=== PATIENT | male | born 1950 | race American Indian/Alaskan Native ===

== ENCOUNTER 2019-06-14 18:37 | Emergency (ER) | payer OTHER ==
[~2019-06-14] VITALS: Ht 177.8 cm; Wt 99.1 kg
[2019-06-14 18:46] VITALS: Ht 177.8 cm; Wt 99.1 kg
[2019-06-14] MEDS ORDERED: SEROQUEL300 MG PO ×2 (18:48→18:49)
[2019-06-14] MEDS ORDERED: SEROQUEL50 MG PO (18:49)
[2019-06-14] MEDS ORDERED: FLOMAX0.4 MG PO (18:50)
[2019-06-14 19:18] LABS: BASOPHILS 0.6 % (0-2); HEMATOCRIT 41.6 % (42.0-54.0); HEMOGLOBIN 14.6 g/dL (13.5-17.5); IMMATURE GRANULOCYTES 0.4 % (0-5); LYMPHOCYTES 25.1 % (15-50); MCH 31.3 pg (26.0-34.0); MCHC 35.1 g/dL (31.0-37.0); MCV 89.3 fL (80.0-100.0); MEAN PLATELET VOLUME 9.1 fL (7.4-10.4); MONOCYTES 7.2 % (2-11); NEUTROPHILS 60.7 % (40-80); PLATELET COUNT 219 10x3/uL (130-400); RBC 4.66 10x6/uL (4.20-6.10); RDW 11.7 % (11.5-14.5); WBC 10.5 10x3/uL (4.8-10.8)
[2019-06-14 19:21] LABS: APPEARANCE CLEAR (CLEAR); BILIRUBIN NEGATIVE (NEGATIVE); COLOR YELLOW (YELLOW); GLUCOSE 500 mg/dL (NEGATIVE); KETONE NEGATIVE (NEGATIVE); NITRITE NEGATIVE (NEGATIVE); PROTEIN NEGATIVE (NEGATIVE); SPECIFIC GRAVITY 1.015 (1.005-1.020); UROBILINOGEN NORMAL (NORMAL)
[2019-06-14 19:25] LABS: CALC OSMOLALITY 286 mosm/kg (275-300); CALCIUM 8.9 mg/dL (8.5-10.1); CARBON DIOXIDE 29.7 mmol/L (21.0-32.0); CHLORIDE - SERUM 96 mmol/L (98-107); CREATININE - SERUM 1.4 mg/dL (0.6-1.3); POTASSIUM - SERUM 4.9 mmol/L (3.5-5.1); SODIUM 133 mmol/L (136-145); UREA NITROGEN 30 mg/dL (7-18); eGFR NON AFRICAN AMERICAN 54 mL/min (90-120)
[2019-06-14 19:26] LABS: GLUCOSE 360 mg/dL (74-106)
[2019-06-14 19:51] LABS: KETONE - SERUM NEGATIVE (NEGATIVE)
[2019-06-14] MEDS ORDERED: GLUCOPHAGE500 MG PO (19:52)
[2019-06-14 19:55] LABS: ALBUMIN 4.1 g/dL (3.4-5.0); ALKALINE PHOSPHATASE 192 U/L (30-120); ALT (SGPT) 28 U/L (10-68); BILIRUBIN - TOTAL 0.49 mg/dL (0.2-1.3); MAGNESIUM - SERUM 2.4 mg/dL (1.8-2.4); PROTEIN - SERUM 7.8 g/dL (6.4-8.2)
[2019-06-14 20:55] VITALS: BP 118/70
== END 2019-06-14 20:55 | disposition home or self-care (01) ==
LOC: D.ER 18:37
PROVIDERS: Family Medicine
DX: E11.9 Type 2 diabetes mellitus without complications (principal); R74.8 Abnormal levels of other serum enzymes; I10 Essential (primary) hypertension; K21.9 Gastro-esophageal reflux disease without esophagitis

== ENCOUNTER 2019-07-28 12:34 | Inpatient (IN) | payer OTHER ==
[~2019-07-28] VITALS: Ht 177.8 cm; Wt 98.2 kg
[~2019-07-28 12:34] MED LIST: FLOMAX0.4 MG PO; GLUCOPHAGE500 MG PO; SEROQUEL300 MG PO; SEROQUEL50 MG PO
[2019-07-28 13:34] LABS: BASOPHILS 0.1 % (0-2); EOSINOPHILS 0 % (0-7); HEMATOCRIT 45.5 % (42.0-54.0); HEMOGLOBIN 15.4 g/dL (13.5-17.5); IMMATURE GRANULOCYTES 0.2 % (0-5); LYMPHOCYTES 9.5 % (15-50); MCH 30.7 pg (26.0-34.0); MCHC 33.8 g/dL (31.0-37.0); MCV 90.8 fL (80.0-100.0); MEAN PLATELET VOLUME 8.9 fL (7.4-10.4); MONOCYTES 11.2 % (2-11); PLATELET COUNT 239 10x3/uL (130-400); RBC 5.01 10x6/uL (4.20-6.10)
[2019-07-28 13:47] LABS: INR 1.1 (0.85-1.17); PROTIME 14.2 SECONDS (11.6-15.0)
[2019-07-28 13:48] LABS: APTT 33.7 SECONDS (22.8-39.4)
--- NOTE | 2019-07-28 14:00 | NUR ---
PT IS POSITIVE FOR FLU A
[2019-07-28 14:23] LABS: CALC OSMOLALITY 273 mosm/kg (275-300); CALCIUM 8.5 mg/dL (8.5-10.1); CARBON DIOXIDE 23.6 mmol/L (21.0-32.0); CHLORIDE - SERUM 99 mmol/L (98-107); CREATININE - SERUM 1.4 mg/dL (0.6-1.3); POTASSIUM - SERUM 4.1 mmol/L (3.5-5.1); SODIUM 133 mmol/L (136-145); UREA NITROGEN 38 mg/dL (7-18); eGFR NON AFRICAN AMERICAN 54 mL/min (90-120)
[2019-07-28 14:25] LABS: GLUCOSE 73 mg/dL (74-106)
[2019-07-28 14:54] VITALS: BP 140/78
[2019-07-28 14:56] LABS: ALBUMIN 3.9 g/dL (3.4-5.0); ALKALINE PHOSPHATASE 102 U/L (30-120); ALT (SGPT) 30 U/L (10-68); BILIRUBIN - TOTAL 0.68 mg/dL (0.2-1.3); CKMB 1.1 U/L (0.0-3.6); CREATINE KINASE 238 UL (21-232); PRO BNP 270 pg/mL (0-125); PROTEIN - SERUM 8.1 g/dL (6.4-8.2)
[2019-07-28 15:11] LABS: TROPONIN-I < 0.017 ng/mL (0.000-0.060)
--- NOTE | 2019-07-28 15:20 | NUR ---
ROCEPHIN INFUSED. PT ELIEL. WELL.
--- NOTE | 2019-07-28 16:26 | NUR ---
PT SWABBED FOR CAMPOS TAKEN TO MED 2 . PT WEARING MASK, CLOTHES BAGGED AND UNDER COVER. TAKEN TO ISOLATION ROOM. HOUSE SUPP. AWARE.
[2019-07-28 16:48] VITALS: BP 110/66
[2019-07-28 17:11] VITALS: BP 110/66; BMI 30.9
--- NOTE | 2019-07-28 18:14 | NUR ---
PT ARRIVED TO ROOM VIA STRETCHER. PT IS FLUSHED AND HOT TO THE TOUCH. ALERT AND ORIENTED, VERY HARD OF HEARING. PT WALKS WELL UNASSISTED BUT STATES HE'D PREFER A URINAL AT THIS TIME BECAUSE HE'S PRETTY TIRED. STATES HE FEELS BETTER THAN HE DID WHEN HE FIRST ARRIVED AT THE HOSPITAL. AFEBRIL. NO COMPLAINTS OR CONCERNS, JUST WANTS TO REST AT THIS TIME. CL INR EACH, SRX2.
--- NOTE | 2019-07-28 20:22 | NUR ---
RECEIVED LAYING IN BED WITH EYES CLOSED. AROUSES WITH VERBAL STIMULI. ORIENTED X4. UP AD LIBB TO B/R. IV TO LT FA SL.. O2@ 3 LITERS PER N/C. REMAINS IN ISOLATION R/T FLU TYPE A AMD PRESUMPTIVE CAMPOS VIRUS. HAD A HACKING COUGH. DENIES ANY NEEDS AT THIS TIME.
[2019-07-28 20:38] VITALS: BP 115/48
[2019-07-28 21:08] LABS: BILIRUBIN NEGATIVE (NEGATIVE); GLUCOSE NEGATIVE (NEGATIVE); KETONE NEGATIVE (NEGATIVE); NITRITE NEGATIVE (NEGATIVE); RED CELLS - URINE 0-5 /hpf (0-5); SPECIFIC GRAVITY 1.025 (1.005-1.020); UROBILINOGEN NORMAL (NORMAL); WHITE CELLS - URINE OCC /hpf (NEGATIVE)
[2019-07-28 21:09] LABS: BACTERIA MODERATE /hpf (NEGATIVE); EPITHELIAL CELLS 0-5 /hpf (0-5)
[2019-07-29 02:39] VITALS: BP 119/66
[2019-07-29 05:54] VITALS: BP 123/66
[2019-07-29 06:38] LABS: BASOPHILS 0 % (0-2); EOSINOPHILS 0 % (0-7); HEMATOCRIT 41.8 % (42.0-54.0); IMMATURE GRANULOCYTES 0.1 % (0-5); LYMPHOCYTES 16.7 % (15-50); MCH 30.6 pg (26.0-34.0); MCHC 33.5 g/dL (31.0-37.0); MCV 91.3 fL (80.0-100.0); MEAN PLATELET VOLUME 8.5 fL (7.4-10.4); MONOCYTES 7.3 % (2-11); NEUTROPHILS 75.9 % (40-80); PLATELET COUNT 199 10x3/uL (130-400); RBC 4.58 10x6/uL (4.20-6.10); RDW 12.9 % (11.5-14.5)
[2019-07-29 07:27] LABS: ALBUMIN 3.3 g/dL (3.4-5.0); ALKALINE PHOSPHATASE 94 U/L (30-120); ALT (SGPT) 29 U/L (10-68); BILIRUBIN - TOTAL 0.78 mg/dL (0.2-1.3); CALCIUM 8.4 mg/dL (8.5-10.1); CARBON DIOXIDE 22.1 mmol/L (21.0-32.0); CHLORIDE - SERUM 101 mmol/L (98-107); GLUCOSE 100 mg/dL (74-106); MAGNESIUM - SERUM 1.9 mg/dL (1.8-2.4); POTASSIUM - SERUM 4.1 mmol/L (3.5-5.1); PROTEIN - SERUM 7.4 g/dL (6.4-8.2); SODIUM 135 mmol/L (136-145); eGFR NON AFRICAN AMERICAN 79 mL/min (90-120)
[2019-07-29 07:28] LABS: CALC OSMOLALITY 273 mosm/kg (275-300); UREA NITROGEN 25 mg/dL (7-18)
[2019-07-29 09:19] VITALS: BP 140/82
--- NOTE | 2019-07-29 09:36 | NUR ---
PT AWAKE AND ORIENTED, LYING IN BED RESTING. WOKE EASILY I ENTERED ROOM. PT SEEMS MUCH BETTER THAN YESTERDAY THOUGH LUNGS SOUND WORSE. PT TOOK MEDICATIONS WITHOUT COMPLICATIONS AND DENIES NEED FOR OTHER ITEMS AT [facility]IST [place]. TEMPERATRUE WNL. NO COMPLAINTS OR CONCERNS AT THIS TIME. CL IN REACH,S RX2,
[2019-07-29 11:04] VITALS: BP 121/57
--- NOTE | 2019-07-29 11:12 | NUR ---
PT ALERT AND ORIENTED, MOANING LOUDLY WHEN HE STARTS TO DRIFT OFF TO SLEEP. PT IS FLUSHED AND DIAPHORETIC, CHECKED TEMPERATURE 101.3, ADMINISTERED TYLENOL. PT STATES HE FEELS BETTER BUT HE LOOKS WORSE. WILL CONT. TO MONITOR. CL IN REACH, SRX2.
--- NOTE | 2019-07-29 11:54 | MORECARE ---
CASE MANAGEMENT DISCHARGE SUMMARY PATIENT: ELIZABETH KINCAID UNIT: [id number] ADM DATE: 07/28/19 AGE: 68 : 52 SEX: M ROOM/BED: D.2140 AUTHOR: RACHELE SORIANO PHYSICIAN: REFERRING PHYSICIAN: MEGHANA HERNANDEZ MD DATE OF SERVICE: 07/29/19 Discharge Plan Patient Name: ELIZABETH KINCAID [facility] [facility] 1950 Planned Disposition: Home Anticipated Discharge Date: 07/29/19 Discharge Date: Expected LOS: 1 Initial Reviewer: [email or web address] Initial Review Date: 07/29/2019 Generated: 07/29/19 12:53 pm DCPIA - Discharge Planning Initial Assessment Updated by [email or web address]: Jeremie Moser on 07/29/19 11:49 am * Is the patient Alert and Oriented? Yes * How many steps to enter\exit or inside your home? NONE * PCP [facility] * Pharmacy [facility] OR [facility] * Preadmission Environment Home Alone * ADLs Independent * Equipment None * Other Equipment [facility] - PREFERRED PROVIDER * List name and contact numbers for known caregivers / representatives who currently or will assist patient after discharge: YOCASTA GALLEGOSR, FRIEND, * Verbal permission to speak to the caregivers and representatives has been obtained from the patient. N/A * Community resources currently utilized None * Please name any agencies selected above. NONE * Additional services required to return to the preadmission environment? No * Can the patient safely return to the preadmission environment? Yes * Has this patient been hospitalized within the prior 30 days at any hospital? No Patient Name: ELIZABETH KINCAID Page [phone] at 1154 All edits/amendments must be made on the electronic document DICTATION DATE: 07/29/19 1153 PANEL MACHINE SETTER: FABIO 07/29/19 1153 RPT#: [id number] DC DATE: STATUS: ADM IN [facility] [address] [place] [address] END OF REPORT
--- NOTE | 2019-07-29 12:00 | MORECARE ---
CASE MANAGEMENT DISCHARGE SUMMARY PATIENT: ELIZABETH KINCAID UNIT: [id number] ADM DATE: 07/28/19 AGE: 68 : 52 SEX: M ROOM/BED: D.2140 AUTHOR: CHRISTIE,DOC PHYSICIAN: REFERRING PHYSICIAN: MEGHANA HERNANDEZ MD DATE OF SERVICE: 07/29/19 Discharge Plan Patient Name: ELIZABETH KINCAID Facility: [facility]:[place] : 1950 Planned Disposition: Home Anticipated Discharge Date: 07/29/19 Discharge Date: Expected LOS: 1 Initial Reviewer: [email or web address] Initial Review Date: 07/29/2019 Generated: 07/29/19 1:00 pm Comments DCP- Discharge Planning Updated by [id number]: Jeremie Moser on 07/29/19 10:[address] Patient Name: ELIZABETH KINCAID Admission Status: Elective Accout number: [id number] Admission Date: 07-28-2019 : 1950 Admission Diagnosis: Attending: MEGHANA HERNANDEZ Current LOS: 1 Anticipated DC Date: 07-29-2019 Planned Disposition: Home Primary Insurance: [facility] Discharge Planning Comments: CM MET WITH PT IN ROOM TO DISCUSS DISCHARGE PLANNING AND NEEDS. PT REPORTS LIVING AT HOME INDEPENDENTLY AND ALONE. PT HAS NO MEDICAL EQUIPMENT AND NO OUTSIDE SERVICES ASSISTING IN THE HOME. CM DISCUSSED AVAILABILITY OF HOME HEALTH, REHAB SERVICES AND MEDICAL EQUIPMENT. PT HAS UNKNOWN DISCHARGE NEEDS AT THIS TIME, PT REPORTS A FRIEND WILL PICK HIM UP FOR DISCHARGE HOME. PT DOES NOT KNOW THAT THE VA HAS BEEN CONTACTED AND WOULD LIKE TO BE ON THE VA TRANSFER LIST. CM CALLED [facility], , SPOKE TO YOCASTA AND PROVIDED INFORMATION REQUESTED FOR PT TO BE PLACED ON TRANSFER LIST WITH VA. PT ON VA TRANSFER LIST. PT PLANS TO DISCHARGE HOME ALONE, HAS UNKNOWN DISCHARGE NEEDS AT THIS TIME. CM TO FOLLOW AND ASSIST NEEDED. Gear Hobber Operator: Jeremie Moser DCPIA - Discharge Planning Initial Assessment Updated by [id number]: Jeremie Moser on 07/29/19 11:49 am * Is the patient Alert and Oriented? Yes * How many steps to enter\exit or inside your home? NONE * PCP [facility] * Pharmacy [facility] OR [facility] [address] * Preadmission Environment Home Alone * ADLs Independent * Equipment None * Other Equipment [facility] - PREFERRED PROVIDER * List name and contact numbers for known caregivers / representatives who currently or will assist patient after discharge: YOCASTA RIDER, FRIEND, * Verbal permission to speak to the caregivers and representatives has been obtained from the patient. N/A * Community resources currently utilized None * Please name any agencies selected above. NONE * Additional services required to return to the preadmission environment? No * Can the patient safely return to the preadmission environment? Yes * Has this patient been hospitalized within the prior 30 days at any hospital? No Last DP export: 07/29/19 10:54 a Patient Name: ELIZABETH KINCAID Page [id number] at 1200 All edits/amendments must be made on the electronic document DICTATION DATE: 07/29/19 1200 LAND USE PLANNER: FABIO 07/29/19 1200 RPT#: [id number] DC DATE: STATUS: ADM IN [facility] [address] [place] [address] END OF REPORT
--- NOTE | 2019-07-29 12:24 | NUR ---
DELIVERED LUNCH TRAY. PT SLEEPING AT THIS TIME. WOKE EASILY TO BE TOLD [facility] TRAY WAS AVALBIABLE. PT DENIES WANT FOR IT AT THIS TIME, STATING HE'S NOT CURRENTLY HUNGRY BUT HE'LL TRY AND EAT LATER. CL IN REACH,S RX2.
[2019-07-29 15:20] VITALS: BP 94/54
[2019-07-29 16:10] VITALS: Ht 177.8 cm; Wt 98.2 kg
--- NOTE | 2019-07-29 18:26 | NUR ---
I have reviewed this patient and I concur with the Shift Assessment completed by the Licensed Practical Nurse today this shift.
--- NOTE | 2019-07-29 18:39 | NUR ---
PT AWAKE AND ORIENTED. LYING IN BED. PT'S FEVER IS LESS. STATES HE FEELS A LITTLE BETTER. NO COMPLAINTS OR CONCERNS AT THIS TIME. DID NOT EAT SUPPER. CL IN REACH, SRX2. WILL CONT. MONITOR WITH ALL PROPPPER PRECAUTIONS.
[2019-07-29 19:35] VITALS: BP 98/53
--- NOTE | 2019-07-29 20:03 | NUR ---
RECEIVED LAYING IN BED WITH EYES CLOSED. EASILY AROUSES WITH VERBAL STIMULI. ORIENTED X4. STATES " I FEEL BAD". O2@ 3 LITERS PER N/C IN PLACE. IV TO RT FA WITH NS AT 75CC/HR. CHANGED RATE TO 100CC/HR PER ORDER. HAS A HACKING COUGH. DENIES ANY NEEDS OR PAIN AT THIS TIME.
[2019-07-30 03:24] VITALS: BP 118/68
[2019-07-30 05:39] LABS: BASOPHILS 0.2 % (0-2); EOSINOPHILS 0.2 % (0-7); HEMATOCRIT 39.9 % (42.0-54.0); IMMATURE GRANULOCYTES 0.2 % (0-5); LYMPHOCYTES 24.8 % (15-50); MCH 30.5 pg (26.0-34.0); MCHC 32.6 g/dL (31.0-37.0); MONOCYTES 7.7 % (2-11); NEUTROPHILS 66.9 % (40-80); PLATELET COUNT 171 10x3/uL (130-400); RBC 4.26 10x6/uL (4.20-6.10); RDW 12.9 % (11.5-14.5)
[2019-07-30 05:40] LABS: MCV 93.7 fL (80.0-100.0); WBC 5.2 10x3/uL (4.8-10.8)
[2019-07-30 06:29] LABS: CALC OSMOLALITY 274 mosm/kg (275-300); CALCIUM 7.4 mg/dL (8.5-10.1); CARBON DIOXIDE 23.3 mmol/L (21.0-32.0); CHLORIDE - SERUM 102 mmol/L (98-107); CREATININE - SERUM 0.9 mg/dL (0.6-1.3); GLUCOSE 113 mg/dL (74-106); MAGNESIUM - SERUM 1.9 mg/dL (1.8-2.4); POTASSIUM - SERUM 4.3 mmol/L (3.5-5.1); SODIUM 135 mmol/L (136-145); UREA NITROGEN 23 mg/dL (7-18); eGFR NON AFRICAN AMERICAN 90 mL/min (90-120)
[2019-07-30 07:30] VITALS: BP 125/76
--- NOTE | 2019-07-30 07:52 | NUR ---
REPORT RECEIVED. WILL CONTINUE WITH POC. PT CURRENTLY SITTING ON EDGE OF BED. CALL LIGHT W/I REACH. PT IS AAO AND UP AD BRISEIDA. RR EVEN AND UNLABORED ON 4L 02. NS INFUSING @100ML/HR VIA R.HAND PIV. NO S/S OF DISTRESS NOTED VSS WNL. PT DENIES ANY NEEDS. AIRBORNE ISOLATION IN PLACE. WILL CTM.
[2019-07-30 11:31] VITALS: BP 94/65
--- NOTE | 2019-07-30 12:26 | NUR ---
PREVIOUS PIV TO THE RIGHT HAND INFILTRATED. REMOVED PIV WITH CATHETER TIP FULLY INTACT. INITIATED NEW PIV TO THE LEFT HAND 22GA X1 ATTEMPT. PT TOLERATED WELL. FLUSHED WITH 10ML NS TO CONFIRM PATENCY. NS INFUSING @100ML/HR VIA L.HAND PIV. NO S/S OF DISTRESS NOTED. PT DENIES ANY NEEDS. WILL CTM.
--- NOTE | 2019-07-30 13:12 | NUR ---
I have reviewed this patient and I concur with the Shift Assessment completed by the Licensed Practical Nurse today this shift.
[2019-07-30 16:35] VITALS: BP 111/61
--- NOTE | 2019-07-30 19:57 | NUR ---
RECEIVED LAYING IN BED WITH EYES CLOSED. EASILY AROUSES WITH VERBAL STIMULI. ALERT AND ORIENTED X4. UP AD BRISEIDA. USES URINAL IN BED. IV TO LEFT HAND WITH NS INFUSING AT 100CC/HR. DSG CDI. DENIES ANY NEEDS AT THIS TIME.
[2019-07-30 22:53] VITALS: BP 98/61
--- NOTE | 2019-07-30 23:57 | NUR ---
REMAINS IN DROPLET ISOLATION R/T PRESUMTIVE COVID 19.
[2019-07-31 06:15] LABS: BASOPHILS 0.2 % (0-2); EOSINOPHILS 0.2 % (0-7); HEMATOCRIT 39.7 % (42.0-54.0); HEMOGLOBIN 12.9 g/dL (13.5-17.5); LYMPHOCYTES 30.6 % (15-50); MCH 30.1 pg (26.0-34.0); MCHC 32.5 g/dL (31.0-37.0); MCV 92.8 fL (80.0-100.0); MEAN PLATELET VOLUME 9.1 fL (7.4-10.4); MONOCYTES 10.5 % (2-11); NEUTROPHILS 58.5 % (40-80); PLATELET COUNT 183 10x3/uL (130-400); RBC 4.28 10x6/uL (4.20-6.10); RDW 12.8 % (11.5-14.5); WBC 5.3 10x3/uL (4.8-10.8)
[2019-07-31 06:36] LABS: CALC OSMOLALITY 275 mosm/kg (275-300); CALCIUM 7.9 mg/dL (8.5-10.1); CARBON DIOXIDE 24.7 mmol/L (21.0-32.0); CHLORIDE - SERUM 105 mmol/L (98-107); CREATININE - SERUM 0.9 mg/dL (0.6-1.3); GLUCOSE 124 mg/dL (74-106); MAGNESIUM - SERUM 1.8 mg/dL (1.8-2.4); POTASSIUM - SERUM 4.2 mmol/L (3.5-5.1); SODIUM 137 mmol/L (136-145); eGFR NON AFRICAN AMERICAN 90 mL/min (90-120)
[2019-07-31 06:37] LABS: UREA NITROGEN 15 mg/dL (7-18)
[2019-07-31 08:47] VITALS: BP 125/71
--- NOTE | 2019-07-31 10:08 | NUR ---
I have reviewed this patient and I concur with the Shift Assessment completed by the Licensed Practical Nurse today this shift.
--- NOTE | 2019-07-31 10:21 | NUR ---
PT LAYING SUPINE. RR EVEN AND UNLABORED ON 4L NC. CALL LIGHT WITHIN REACH. INSTRUCTED TO CALL [phone] ON THE PHONE WHEN IN NEED OF SOMETHING. PHONE IN REACH. DROPLET PRECAUTIONS IN PLACE. DIET COLA DRINK RECIEVED UPON REQUEST DENIES NEEDS OR PAIN AT THIS TIME. ASSISTED WITH SETTING UP BREAKFAST TRAY. SITTING UP AND EATING WITH NO DIFFICULTY. AXO AT THIS TIME. ASSESSMENT COMPLETE AND CHARTED. BED IN LOWEST POSITION. WILL CONTINUE TO MONITOR.
[2019-07-31 12:10] VITALS: BP 109/73
--- NOTE | 2019-07-31 14:29 | NUR ---
Nutrition Follow-up: Pt remains in droplet isolation; covid-19 pending. Fair PO intake. Diet: Diabetic, Cardiac PO intake: 50% x 3 yesterday No new wt; last wt: 215# (07/28) Last BM: 07/29 per chart Labs noted: Glu 124, Ca 7.9 Meds noted: NS @ 75, Protonix -Encourage PO intake and honor food preferences within diet restrictions. -Offer Glucerna with meals. -Need new wt; noted daily wts ordered. -RD following.
[2019-07-31 17:36] VITALS: BP 124/766
--- NOTE | 2019-07-31 19:39 | NUR ---
PT. IN BED, RESP EVEN AND UNLABORED. NO DISTRESS NOTED, IV INFUSING TO LEFT HAND, NO REDNESS OR SWELLING NOTED TO SITE, NO C/O PAIN OR DISCOMFORT NOTED AT THIS TIME, CL IN REACH, SR UP X 2.
[2019-07-31 20:00] VITALS: BP 111/74
[2019-08-01] VITALS: BP 106/58
[2019-08-01 04:00] VITALS: BP 105/53
[2019-08-01 04:36] LABS: BASOPHILS 0.1 % (0-2); EOSINOPHILS 0.6 % (0-7); HEMATOCRIT 39.7 % (42.0-54.0); HEMOGLOBIN 13.1 g/dL (13.5-17.5); IMMATURE GRANULOCYTES 0.3 % (0-5); LYMPHOCYTES 23.2 % (15-50); MCH 30.5 pg (26.0-34.0); MCV 92.3 fL (80.0-100.0); MEAN PLATELET VOLUME 8.7 fL (7.4-10.4); MONOCYTES 13.4 % (2-11); NEUTROPHILS 62.4 % (40-80); PLATELET COUNT 198 10x3/uL (130-400); RDW 12.6 % (11.5-14.5)
[2019-08-01 04:38] LABS: WBC 6.7 10x3/uL (4.8-10.8)
[2019-08-01 04:47] LABS: CALC OSMOLALITY 277 mosm/kg (275-300); CALCIUM 8.1 mg/dL (8.5-10.1); CARBON DIOXIDE 22.5 mmol/L (21.0-32.0); CHLORIDE - SERUM 106 mmol/L (98-107); CREATININE - SERUM 0.8 mg/dL (0.6-1.3); GLUCOSE 140 mg/dL (74-106); MAGNESIUM - SERUM 1.8 mg/dL (1.8-2.4); POTASSIUM - SERUM 4.1 mmol/L (3.5-5.1); SODIUM 137 mmol/L (136-145); UREA NITROGEN 17 mg/dL (7-18); eGFR NON AFRICAN AMERICAN > 90 mL/min (90-120)
[2019-08-01 08:45] VITALS: BP 124/68
--- NOTE | 2019-08-01 11:07 | NUR ---
I have reviewed this patient and I concur with the Shift Assessment completed by the Licensed Practical Nurse today this shift.
[2019-08-01 13:30] VITALS: BP 128/77
--- NOTE | 2019-08-01 15:00 | NUR ---
PT IN SHOWER, LINENS AND GOWN CHANGED. DENIES FURTHER NEEDS AT THIS TIME.
[2019-08-01 16:26] VITALS: BP 125/56
--- NOTE | 2019-08-01 17:45 | NUR ---
PT C/O IV HURTING. INFUSION STOPPED. ATTEMPTED IV RESTART X4. UNSUCCESSFUL. SPOKE WITH DR. KWAN, STATED TO JUST LEAVE IT ALONE AND HE WILL CHANGE IV ANTIBIOTICS TO PO.
[2019-08-01 20:00] VITALS: BP 120/68
[2019-08-02] VITALS: BP 127/80
[2019-08-02 04:00] VITALS: BP 122/72
[2019-08-02 06:55] LABS: CALC OSMOLALITY 273 mosm/kg (275-300); CARBON DIOXIDE 21.6 mmol/L (21.0-32.0); CHLORIDE - SERUM 104 mmol/L (98-107); CREATININE - SERUM 0.7 mg/dL (0.6-1.3); GLUCOSE 124 mg/dL (74-106); MAGNESIUM - SERUM 1.8 mg/dL (1.8-2.4); POTASSIUM - SERUM 4.1 mmol/L (3.5-5.1); SODIUM 136 mmol/L (136-145); UREA NITROGEN 16 mg/dL (7-18); eGFR NON AFRICAN AMERICAN > 90 mL/min (90-120)
[2019-08-02 07:01] LABS: BASOPHILS 0.1 % (0-2); EOSINOPHILS 0.4 % (0-7); HEMATOCRIT 39.3 % (42.0-54.0); HEMOGLOBIN 12.9 g/dL (13.5-17.5); IMMATURE GRANULOCYTES 0.3 % (0-5); LYMPHOCYTES 19.2 % (15-50); MCH 30.2 pg (26.0-34.0); MCHC 32.8 g/dL (31.0-37.0); MEAN PLATELET VOLUME 8.8 fL (7.4-10.4); MONOCYTES 15.9 % (2-11); NEUTROPHILS 64.1 % (40-80); RBC 4.27 10x6/uL (4.20-6.10); RDW 12.6 % (11.5-14.5); WBC 7.3 10x3/uL (4.8-10.8)
[2019-08-02 07:16] LABS: PLATELET COUNT 245 10x3/uL (130-400)
--- NOTE | 2019-08-02 08:00 | NUR ---
PT RESTING IN BED, VSS AND WNL. CALL LIGHT WITHIN REACH. SHIFT ASSESSMENT PERFORMED, DENIES ANY FURTHER NEEDS AT THIS TIME, WILL CONT TO FOLLOW POC
[2019-08-02 08:44] VITALS: BP 140/74
--- NOTE | 2019-08-02 09:00 | NUR ---
PT HAD NC RESTING ON SIDE OF FACE AND O2 SAT 94%. REMOVED NC AND WILL CONT TO MONITOR
--- NOTE | 2019-08-02 10:26 | MORECARE ---
CASE MANAGEMENT DISCHARGE SUMMARY PATIENT: ELIZABETH KINCAID UNIT: [id number] ADM DATE: 07/28/19 AGE: 68 : 52 SEX: M ROOM/BED: D.2132 AUTHOR: RACHELE SORIANO PHYSICIAN: REFERRING PHYSICIAN: MEGHANA HERNANDEZ MD DATE OF SERVICE: 08/02/19 Discharge Plan Patient Name: ELIZABETH KINCAID Facility: [facility]:[place] : 1950 Planned Disposition: Home Anticipated Discharge Date: 07/29/19 Discharge Date: Expected LOS: 1 Initial Reviewer: [email or web address] Initial Review Date: 07/29/2019 Generated: 08/02/19 11:26 am Comments DCP- Discharge Planning Updated by [email or web address]: Jeremie Moser on 08/02/19 9:[address] Patient Name: ELIZABETH KINCAID Encounter No: [id number] : 1950 Primary Insurance: [facility] Anticipated DC Date: 07-29-2019 Planned Disposition: Home DCP follow-up note: CM RECEIVED CALL FROM LUIS FERNANDO CASTELAN OF [place] [facility], , THEY WILL WORK ON VA TRANSFER ONCE THE COVID 19 TEST RESULTS ARE RECEIVED. IT DOES NOT MATTER IF THE RESULT IS POSITIVE OR NEGATIVE, ONLY THAT THE RESULT IF RECEIVED. LUIS FERNANDO ASKED TO BE NOTIFIED WHEN COVID 19 TESTING RESULT IS RECEIVED. WHEN COVID 19 TESTING RESULT IS RECEIVED, NOTIFY LUIS FERNANDO CASTELAN AT [facility] TO CONTINUE TRANSFER PROCESS, / JAMAICA Gonzalez DCP- Discharge Planning Updated by [email or web address]: Jeremie Moser on 07/29/19 10:[address] Patient Name: ELIZABETH KINCAID Admission Status: Elective Accout number: [id number] Admission Date: 07-28-2019 : 1950 Admission Diagnosis: Attending: MEGHANA HERNANDEZ Current LOS: 1 Anticipated DC Date: 07-29-2019 Planned Disposition: Home Primary Insurance: [facility] Discharge Planning Comments: CM MET WITH PT IN ROOM TO DISCUSS DISCHARGE PLANNING AND NEEDS. PT REPORTS LIVING AT HOME INDEPENDENTLY AND ALONE. PT HAS NO MEDICAL EQUIPMENT AND NO OUTSIDE SERVICES ASSISTING IN THE HOME. CM DISCUSSED AVAILABILITY OF HOME HEALTH, REHAB SERVICES AND MEDICAL EQUIPMENT. PT HAS UNKNOWN DISCHARGE NEEDS AT THIS TIME, PT REPORTS A FRIEND WILL PICK HIM UP FOR DISCHARGE HOME. PT DOES NOT KNOW THAT THE VA HAS BEEN CONTACTED AND WOULD LIKE TO BE ON THE VA TRANSFER LIST. CM CALLED [place] EXPEDITOR, , SPOKE TO YOCASTA AND PROVIDED INFORMATION REQUESTED FOR PT TO BE PLACED ON TRANSFER LIST WITH VA. PT ON VA TRANSFER LIST. PT PLANS TO DISCHARGE HOME ALONE, HAS UNKNOWN DISCHARGE NEEDS AT THIS TIME. CM TO FOLLOW AND ASSIST NEEDED. Oracle Soa Developer: Jeremie Moser DCPIA - Discharge Planning Initial Assessment Updated by [email or web address]: Jeremie Moser on 07/29/19 11:49 am * Is the patient Alert and Oriented? Yes * How many steps to enter\exit or inside your home? NONE * PCP [facility] * Pharmacy [facility] OR [facility] * Preadmission Environment Home Alone * ADLs Independent * Equipment None * Other Equipment [facility] - PREFERRED PROVIDER * List name and contact numbers for known caregivers / representatives who currently or will assist patient after discharge: YOCASTA RIDER, FRIEND, * Verbal permission to speak to the caregivers and representatives has been obtained from the patient. N/A * Community resources currently utilized None * Please name any agencies selected above. NONE * Additional services required to return to the preadmission environment? No * Can the patient safely return to the preadmission environment? Yes * Has this patient been hospitalized within the prior 30 days at any hospital? No Last DP export: 07/29/19 11:00 a Patient Name: ELIZABETH KINCAID Page 01224 at 1026 All edits/amendments must be made on the electronic document DICTATION DATE: 08/02/19 1026 BILLING DEPARTMENT SUPERVISOR: FABIO 08/02/19 1026 RPT#: [id number] DC DATE: STATUS: ADM IN [facility] [address] [place] [address] END OF REPORT
--- NOTE | 2019-08-02 10:39 | NUR ---
Nutrition Follow-up: Good/fair PO intake. Remains on droplet isolation; covid 19 pending. Diet: Diabetic Cardiac PO intake: 50-100% Wt: 216# (07/31); 215# (07/28) Labs noted: Glu 124, Ca 8.0 Meds noted: NS @ 75, Protonix -Encourage PO intake and honor food preferences within diet restrictions. -RD following.
[2019-08-02 12:01] VITALS: BP 110/62
--- NOTE | 2019-08-02 12:16 | NUR ---
TRAY SET UP PROVIDED, VSS AND WNL. FSBS OBTAINED. CALL LIGHT WITHIN REACH, NO SIGNS OF DISTRESS NOTED AT THIS TIME, DENIES ANY FURTHER NEEDS, WILL CONT TO FOLLOW POC
--- NOTE | 2019-08-02 13:35 | MORECARE ---
CASE MANAGEMENT DISCHARGE SUMMARY PATIENT: LEIZABETH KINCAID UNIT: [id number] ADM DATE: 07/28/19 AGE: 68 : 52 SEX: M ROOM/BED: D.2132 AUTHOR: RACHELE SORIANO PHYSICIAN: REFERRING PHYSICIAN: MEGHANA HERNANDEZ MD DATE OF SERVICE: 08/02/19 Discharge Plan Patient Name: ELIZABETH KINCAID Facility: [facility]:[place] : 1950 Planned Disposition: Home Anticipated Discharge Date: 08/02/19 Discharge Date: Expected LOS: 5 Initial Reviewer: [email or web address] Initial Review Date: 07/29/2019 Generated: 08/02/19 2:35 pm Comments DCP- Discharge Planning Updated by [email or web address]: Jeremie Moser on 08/02/19 9:[address] Patient Name: ELIZABETH KINCAID Encounter No: [id number] : 1950 Primary Insurance: [facility] Anticipated DC Date: 07-29-2019 Planned Disposition: Home DCP follow-up note: CM RECEIVED CALL FROM LUIS FERNANDO CASTELAN OF [place] [facility], , THEY WILL WORK ON VA TRANSFER ONCE THE COVID 19 TEST RESULTS ARE RECEIVED. IT DOES NOT MATTER IF THE RESULT IS POSITIVE OR NEGATIVE, ONLY THAT THE RESULT IF RECEIVED. LUIS FERNANDO ASKED TO BE NOTIFIED WHEN COVID 19 TESTING RESULT IS RECEIVED. WHEN COVID 19 TESTING RESULT IS RECEIVED, NOTIFY LUIS FERNANDO CASTELAN AT [facility] TO CONTINUE TRANSFER PROCESS, / JAMAICA Gonzalez DCP- Discharge Planning Updated by [id number]: Jeremie Moser on 07/29/19 10:[address] Patient Name: ELIZABETH KINCAID Admission Status: Elective Accout number: [id number] Admission Date: 07-28-2019 : 1950 Admission Diagnosis: Attending: MEGHANA HERNANDEZ Current LOS: 1 Anticipated DC Date: 07-29-2019 Planned Disposition: Home Primary Insurance: [facility] Discharge Planning Comments: CM MET WITH PT IN ROOM TO DISCUSS DISCHARGE PLANNING AND NEEDS. PT REPORTS LIVING AT HOME INDEPENDENTLY AND ALONE. PT HAS NO MEDICAL EQUIPMENT AND NO OUTSIDE SERVICES ASSISTING IN THE HOME. CM DISCUSSED AVAILABILITY OF HOME HEALTH, REHAB SERVICES AND MEDICAL EQUIPMENT. PT HAS UNKNOWN DISCHARGE NEEDS AT THIS TIME, PT REPORTS A FRIEND WILL PICK HIM UP FOR DISCHARGE HOME. PT DOES NOT KNOW THAT THE VA HAS BEEN CONTACTED AND WOULD LIKE TO BE ON THE VA TRANSFER LIST. CM CALLED [place] [facility], , SPOKE TO YOCASTA AND PROVIDED INFORMATION REQUESTED FOR PT TO BE PLACED ON TRANSFER LIST WITH VA. PT ON VA TRANSFER LIST. PT PLANS TO DISCHARGE HOME ALONE, HAS UNKNOWN DISCHARGE NEEDS AT THIS TIME. CM TO FOLLOW AND ASSIST NEEDED. Lead Recoverer: Jeremie Moser DCPIA - Discharge Planning Initial Assessment Updated by [email or web address]: Jeremie Moser on 07/29/19 11:49 am * Is the patient Alert and Oriented? Yes * How many steps to enter\exit or inside your home? NONE * PCP [facility] * Pharmacy [facility] OR [facility] * Preadmission Environment Home Alone * ADLs Independent * Equipment None * Other Equipment [facility] - PREFERRED PROVIDER * List name and contact numbers for known caregivers / representatives who currently or will assist patient after discharge: YOCASTA RIDER, FRIEND, * Verbal permission to speak to the caregivers and representatives has been obtained from the patient. N/A * Community resources currently utilized None * Please name any agencies selected above. NONE * Additional services required to return to the preadmission environment? No * Can the patient safely return to the preadmission environment? Yes * Has this patient been hospitalized within the prior 30 days at any hospital? No Last DP export: 08/02/19 9:26 a Patient Name: ELIZABETH KINCAID Page 32324 at 1335 All edits/amendments must be made on the electronic document DICTATION DATE: 08/02/19 1334 SOLAR ENERGY SYSTEM INSTALLER: FABIO 08/02/19 1334 RPT#: [id number] DC DATE: STATUS: ADM IN [facility] [address] [place] [address] END OF REPORT
--- NOTE | 2019-08-02 13:49 | MORECARE ---
CASE MANAGEMENT DISCHARGE SUMMARY PATIENT: ELIZABETH KINCAID UNIT: [id number] ADM DATE: 07/28/19 AGE: 68 : 54 SEX: M ROOM/BED: D.2132 AUTHOR: RACHELE SORIANO PHYSICIAN: REFERRING PHYSICIAN: MEGHANA HERNANDEZ MD DATE OF SERVICE: 08/02/19 Discharge Plan Patient Name: ELIZABETH KINCAID Facility: [facility]:[place] : 1950 Planned Disposition: Home Anticipated Discharge Date: 08/02/19 Discharge Date: Expected LOS: 5 Initial Reviewer: [email or web address] Initial Review Date: 07/29/2019 Generated: 08/02/19 2:48 pm Comments DCP- Discharge Planning Updated by [id number]: Jeremie Moser on 08/02/19 9:[address] Patient Name: ELIZABETH KINCAID Encounter No: [id number] : 1950 Primary Insurance: [facility] Anticipated DC Date: 07-29-2019 Planned Disposition: Home DCP follow-up note: CM RECEIVED CALL FROM LUIS FERNANDO CASTELAN OF [place] [facility], , THEY WILL WORK ON VA TRANSFER ONCE THE COVID 19 TEST RESULTS ARE RECEIVED. IT DOES NOT MATTER IF THE RESULT IS POSITIVE OR NEGATIVE, ONLY THAT THE RESULT IF RECEIVED. LUIS FERNANDO ASKED TO BE NOTIFIED WHEN COVID 19 TESTING RESULT IS RECEIVED. WHEN COVID 19 TESTING RESULT IS RECEIVED, NOTIFY LUIS FERNANDO CASTELAN AT [facility] TO CONTINUE TRANSFER PROCESS, / JAMAICA Gonzalez DCP- Discharge Planning Updated by [id number]: Jeremie Moser on 07/29/19 10:[address] Patient Name: ELIZABETH KINCAID Admission Status: Elective Accout number: [id number] Admission Date: 07-28-2019 : 1950 Admission Diagnosis: Attending: MEGHANA HERNANDEZ Current LOS: 1 Anticipated DC Date: 07-29-2019 Planned Disposition: Home Primary Insurance: [employer] Discharge Planning Comments: CM MET WITH PT IN ROOM TO DISCUSS DISCHARGE PLANNING AND NEEDS. PT REPORTS LIVING AT HOME INDEPENDENTLY AND ALONE. PT HAS NO MEDICAL EQUIPMENT AND NO OUTSIDE SERVICES ASSISTING IN THE HOME. CM DISCUSSED AVAILABILITY OF HOME HEALTH, REHAB SERVICES AND MEDICAL EQUIPMENT. PT HAS UNKNOWN DISCHARGE NEEDS AT THIS TIME, PT REPORTS A FRIEND WILL PICK HIM UP FOR DISCHARGE HOME. PT DOES NOT KNOW THAT THE VA HAS BEEN CONTACTED AND WOULD LIKE TO BE ON THE VA TRANSFER LIST. CM CALLED [place] EXPEDITOR, , SPOKE TO YOCASTA AND PROVIDED INFORMATION REQUESTED FOR PT TO BE PLACED ON TRANSFER LIST WITH VA. PT ON VA TRANSFER LIST. PT PLANS TO DISCHARGE HOME ALONE, HAS UNKNOWN DISCHARGE NEEDS AT THIS TIME. CM TO FOLLOW AND ASSIST NEEDED. Collections Director: Jeremie Moser DCPIA - Discharge Planning Initial Assessment Updated by [id number]: Jeremie Moser on 07/29/19 11:49 am * Is the patient Alert and Oriented? Yes * How many steps to enter\exit or inside your home? NONE * PCP [facility] * Pharmacy [facility] OR [facility] * Preadmission Environment Home Alone * ADLs Independent * Equipment None * Other Equipment [facility] - PREFERRED PROVIDER * List name and contact numbers for known caregivers / representatives who currently or will assist patient after discharge: YOCASTA RIDER, FRIEND, * Verbal permission to speak to the caregivers and representatives has been obtained from the patient. N/A * Community resources currently utilized None * Please name any agencies selected above. NONE * Additional services required to return to the preadmission environment? No * Can the patient safely return to the preadmission environment? Yes * Has this patient been hospitalized within the prior 30 days at any hospital? No External Providers External Provider: OTHER-OTHER Next Contact Date: 08/02/2019 Service Request Date: Service Type: Resolution: Reviewer: Comments: Last DP export: 08/02/19 12:35 p Patient Name: ELIZABETH KINCAID Page 25710 at 1349 All edits/amendments must be made on the electronic document DICTATION DATE: 08/02/19 134 RETAIL MANAGER: FABIO 08/02/19 1348 RPT#: [id number] DC DATE: STATUS: [facility]M [facility] [address] [place] [address] END OF REPORT
--- NOTE | 2019-08-02 13:57 | MORECARE ---
CASE MANAGEMENT DISCHARGE SUMMARY PATIENT: ELIZABETH KINCAID UNIT: [id number] ADM DATE: 07/28/19 AGE: 68 : 54 SEX: M ROOM/BED: D.2132 AUTHOR: CHRISTIE,DOC PHYSICIAN: REFERRING PHYSICIAN: MEGHANA HERNANDEZ MD DATE OF SERVICE: 08/02/19 Discharge Plan Patient Name: ELIZABETH KINCAID Facility: [facility]:[place] : 1950 Planned Disposition: Home Anticipated Discharge Date: 08/02/19 Discharge Date: Expected LOS: 5 Initial Reviewer: [email or web address] Initial Review Date: 07/29/2019 Generated: 08/02/19 2:56 pm Comments DCP- Discharge Planning Updated by [email or web address]: Jeremie Moser on 08/02/19 12:[address] Patient Name: ELIZBAETH KINCAID Encounter No: [id number] : 1950 Primary Insurance: [facility] [place] Anticipated DC Date: 08-02-2019 Planned Disposition: Home DCP follow-up note: CM RECEIVED OXYGEN TESTING, PT DID NOT QUALIFY FOR OXYGEN. CM RECEIVED ORDER FOR NEBULIZER, SPOKE TO PT AND DISCUSSED OBTAINING A NEBULIZER. [facility] HAS [facility] AND WANTS CM TO GET NEBULIZER FROM [place]. CM EXPLAINED THAT PROCESS CAN TAKE DAYS TO WEEKS. CM DISCUSSED PRIVATE PURCHASE OF NEBULIZER, PT REFUSED. PT STATES TO SEND IT TO THE [facility] FOR THEM TO GET IT. PT REPORTS HE IS DRIVING HIMSELF HOME TODAY, HIS CAR IS IN THE PARKING LOT. PT DENIES DISCHARGE NEEDS. CM CALLED [facility], , SPOKE TO DANNY, THEY WILL PUT IN INFORMATION FOR THE DOCTORS REVIEW FOR NEBULIZER. CM FAXED INFORMATION TO [facility] AT [phone]. J[place]ICA Gonzalez DCP- Discharge Planning Updated by [email or web address]: Jeremie Moser on 08/02/19 9:[address] Patient Name: ELIZABETH KINCAID Encounter No: [id number] : 1950 Primary Insurance: [facility] [place] Anticipated DC Date: 07-29-2019 Planned Disposition: Home DCP follow-up note: CM RECEIVED CALL FROM LUIS FERNANDO CASTELAN OF [place] CASE [facility]NA[facility], , THEY WILL WORK ON [facility] TRANSFER ONCE THE COVID 19 TEST RESULTS ARE RECEIVED. IT DOES NOT MATTER IF THE RESULT IS POSITIVE OR NEGATIVE, ONLY THAT THE RESULT IF RECEIVED. LUIS FERNANDO ASKED TO BE NOTIFIED WHEN COVID 19 TESTING RESULT IS RECEIVED. WHEN COVID 19 TESTING RESULT IS RECEIVED, NOTIFY LUIS FERNANDO CASTELAN AT [facility] [place] TO CONTINUE TRANSFER PROCESS, / Jeremie Moser CASE MANAGEMENT DCP- Discharge Planning Updated by [id number]: Jeremie Moser on 07/29/19 10:[address] Patient Name: ELIZABETH KINCAID Admission Status: Elective Accout number: [id number] Admission Date: 07-28-2019 : 1950 Admission Diagnosis: Attending: MEGHANA HERNANDEZ Current LOS: 1 Anticipated DC Date: 07-29-2019 Planned Disposition: Home Primary Insurance: [facility] Discharge Planning Comments: CM MET WITH PT IN ROOM TO DISCUSS DISCHARGE PLANNING AND NEEDS. PT REPORTS LIVING AT HOME INDEPENDENTLY AND ALONE. PT HAS NO MEDICAL EQUIPMENT AND NO OUTSIDE SERVICES ASSISTING IN THE HOME. CM DISCUSSED AVAILABILITY OF HOME HEALTH, REHAB SERVICES AND MEDICAL EQUIPMENT. PT HAS UNKNOWN DISCHARGE NEEDS AT THIS TIME, PT REPORTS A FRIEND WILL PICK HIM UP FOR DISCHARGE HOME. PT DOES NOT KNOW THAT THE [facility] HAS BEEN CONTACTED AND WOULD LIKE TO BE ON THE VA TRANSFER LIST. CM CALLED [place] [facility], , SPOKE TO YOCASTA AND PROVIDED INFORMATION REQUESTED FOR PT TO BE PLACED ON TRANSFER LIST WITH [facility]. PT ON [facility] TRANSFER LIST. PT PLANS TO DISCHARGE HOME ALONE, HAS UNKNOWN DISCHARGE NEEDS AT THIS TIME. CM TO FOLLOW AND ASSIST NEEDED. Supervisor Public Message Service: Jeremie Moser DCPIA - Discharge Planning Initial Assessment Updated by [email or web address]: Jeremie Moser on 07/29/19 11:49 am * Is the patient Alert and Oriented? Yes * How many steps to enter\exit or inside your home? NONE * PCP [facility] * Pharmacy [facility] OR [facility] [address] * Preadmission Environment Home Alone * ADLs Independent * Equipment None * Other Equipment [facility] - PREFERRED PROVIDER * List name and contact numbers for known caregivers / representatives who currently or will assist patient after discharge: YOCASTA QURESHI TERESO, FRIEND, * Verbal permission to speak to the caregivers and representatives has been obtained from the patient. N/A * Community resources currently utilized None * Please name any agencies selected above. NONE * Additional services required to return to the preadmission environment? No * Can the patient safely return to the preadmission environment? Yes * Has this patient been hospitalized within the prior 30 days at any hospital? No Last DP export: 08/02/19 12:49 p Patient Name: ELIZABETH KINCAID Page [id number] at 1357 All edits/amendments must be made on the electronic document DICTATION DATE: 08/02/19 1356 CORROSION CONTROL TECHNICIAN: FABIO 08/02/19 1356 RPT#: [id number] DC DATE: STATUS: ADM IN [facility] [address] [place] [address] END OF REPORT
[2019-08-02] MEDS ORDERED: VIBRAMYCIN 100100 MG PO (14:01)
[2019-08-02] MEDS ORDERED: OMNICEF300 MG PO (14:01)
--- NOTE | 2019-08-02 16:57 | NUR ---
PIV REMOVED WITH CATHETER TIP INTACT, DISCHARGE INSTRUCTIONS REVIEWED WITH PT AND ALL QUESTIONS ANSWERED. PT ASSISTED TO FRONT OF HOSPITAL VIA WHEELCHAIR
== END 2019-08-02 16:59 | disposition home or self-care (01) | DRG 193 ==
LOC: D.ER 12:34 → D.M2 15:41
PROVIDERS: Family Medicine; ADMIT Internal Medicine Nephrology; ATTEND Internal Medicine Nephrology
DX: J10.1 Influenza due to other identified influenza virus with other respiratory manifestations (principal); J96.01 Acute respiratory failure with hypoxia; J44.1 Chronic obstructive pulmonary disease with (acute) exacerbation; J44.0 Chronic obstructive pulmonary disease with (acute) lower respiratory infection; N17.9 Acute kidney failure, unspecified; N39.0 Urinary tract infection, site not specified; J18.9 Pneumonia, unspecified organism; E11.65 Type 2 diabetes mellitus with hyperglycemia; N40.0 Benign prostatic hyperplasia without lower urinary tract symptoms; Z20.828 Contact with and (suspected) exposure to other viral communicable diseases

== ENCOUNTER 2019-10-24 16:56 | Emergency (ER) | payer OTHER ==
[~2019-10-24] VITALS: Ht 177.8 cm; Wt 96.4 kg
[~2019-10-24 16:56] MED LIST changes: +OMNICEF300 MG PO; +VIBRAMYCIN 100100 MG PO
[2019-10-24 17:02] VITALS: Ht 177.8 cm; Wt 96.4 kg
[2019-10-24] MEDS ORDERED: LISINOPRIL40 MG PO (17:16)
[2019-10-24] MEDS ORDERED: GLUCOTROL 5 MG T5 MG PO (17:17)
[2019-10-24] MEDS ORDERED: OMEPRAZOLE40 MG PO (17:17)
[2019-10-24] MEDS ORDERED: BUPROPION HCL100 MG PO (17:18)
[2019-10-24 17:28] LABS: BASOPHILS 0.5 % (0-2); EOSINOPHILS 2.4 % (0-7); HEMATOCRIT 46.4 % (42.0-54.0); HEMOGLOBIN 15.7 g/dL (13.5-17.5); IMMATURE GRANULOCYTES 0.3 % (0-5); LYMPHOCYTES 27.9 % (15-50); MCHC 33.8 g/dL (31.0-37.0); MCV 91.5 fL (80.0-100.0); MEAN PLATELET VOLUME 8.6 fL (7.4-10.4); MONOCYTES 9.4 % (2-11); NEUTROPHILS 59.5 % (40-80); PLATELET COUNT 197 10x3/uL (130-400); RBC 5.07 10x6/uL (4.20-6.10); RDW 13.6 % (11.5-14.5); WBC 9.5 10x3/uL (4.8-10.8)
[2019-10-24 17:36] LABS: CALC OSMOLALITY 278 mosm/kg (275-300); CALCIUM 8.8 mg/dL (8.5-10.1); CARBON DIOXIDE 26.2 mmol/L (21.0-32.0); CHLORIDE - SERUM 102 mmol/L (98-107); CREATININE - SERUM 1.4 mg/dL (0.6-1.3); GLUCOSE 146 mg/dL (74-106); POTASSIUM - SERUM 4.3 mmol/L (3.5-5.1); SODIUM 136 mmol/L (136-145); UREA NITROGEN 23 mg/dL (7-18); eGFR NON AFRICAN AMERICAN 54 mL/min (90-120)
[2019-10-24 17:37] LABS: APTT 28.2 SECONDS (22.8-39.4); INR 1.02 (0.85-1.17); PROTIME 13.3 SECONDS (11.6-15.0)
[2019-10-24 17:53] LABS: ALBUMIN 4.3 g/dL (3.4-5.0); ALKALINE PHOSPHATASE 86 U/L (30-120); ALT (SGPT) 21 U/L (10-68); BILIRUBIN - TOTAL 0.33 mg/dL (0.2-1.3); CKMB 2.2 U/L (0.0-3.6); CREATINE KINASE 173 UL (21-232); MAGNESIUM - SERUM 2.2 mg/dL (1.8-2.4); PROTEIN - SERUM 7.9 g/dL (6.4-8.2); TROPONIN-I < 0.017 ng/mL (0.000-0.060)
[2019-10-24 18:55] LABS: UDS - AMPHET NEGATIVE QUAL (NEGATIVE); UDS - BARB NEGATIVE QUAL (NEGATIVE); UDS - BENZO NEGATIVE QUAL (NEGATIVE); UDS - COCAINE NEGATIVE QUAL (NEGATIVE); UDS - OPIATE NEGATIVE QUAL (NEGATIVE); UDS - PCP NEGATIVE QUAL (NEGATIVE); UDS - THC NEGATIVE QUAL (NEGATIVE)
[2019-10-24 21:30] VITALS: BP 138/87
== END 2019-10-24 21:30 | disposition other institution (70) ==
LOC: D.ER 16:56
PROVIDERS: Emergency Medicine
DX: F10.239 Alcohol dependence with withdrawal, unspecified (principal); N17.9 Acute kidney failure, unspecified; R07.9 Chest pain, unspecified; E11.65 Type 2 diabetes mellitus with hyperglycemia; Z79.84 Long term (current) use of oral hypoglycemic drugs; J44.9 Chronic obstructive pulmonary disease, unspecified; R06.02 Shortness of breath; Y90.0 Blood alcohol level of less than 20 mg/100 ml